=== PATIENT | female | born 1935 ===

== ENCOUNTER 2018-05-11 11:33 | Emergency (ER) | payer OTHER ==
[~2018-05-11] VITALS: Ht 162.6 cm; Wt 75.7 kg
[~2018-05-11 11:33] MED LIST: CHOLECALCIFEROL PO; COZAAR25 MG PO; HUMALOG MI100 UNIT/2; HUMALOG100 UNIT/1; LIPITOR20 MG PO; NABUMETONE500 MG PO; NORVASC10 MG PO; PERCOCET 5-3251 EACH PO; PREVISION PO; PRILOSE PO; SYNTHROID50 MCG PO; ZANTAC300 MG PO; ZETIA10 MG PO; ZOVIRAX400 M1 PO
[2018-05-11] MEDS ORDERED: PRED FORTE1 ML (12:11)
== END 2018-05-11 15:54 | disposition home or self-care (01) ==
LOC: ER 11:33
DX: I16.0 Hypertensive urgency (principal); I10 Essential (primary) hypertension; G44.209 Tension-type headache, unspecified, not intractable